=== PATIENT | female | born 1985 | race Caucasian/White ===

== ENCOUNTER → 2018-01-15 | Outpatient (CLI) | payer OTHER ==
[2018-01-15 08:16] LABS: BASOPHILS # (AUTO) 0.03 x10^3/uL (0-0.1); BASOPHILS % (AUTO) 0 % (0-1); EOSINOPHILS # (AUTO) 0.05 x10^3/uL (0-0.4); EOSINOPHILS % (AUTO) 1 % (1-7); LYMPHOCYTES # (AUTO) 2.08 x10^3/uL (1-3.4); LYMPHOCYTES % (AUTO) 26 % (22-44); MD NO; MEAN CORPUSCULAR HGB CONC 33.4 g/dL (32.4-35.8); MEAN CORPUSCULAR VOLUME 95.8 fL (80-100); MEAN PLATELET VOLUME 9.7 fL (7.4-10.4); MONOCYTES # (AUTO) 0.55 x10^3/uL (0.2-0.8); MONOCYTES % (AUTO) 7 % (2-9); NEUTROPHILS # (AUTO) 5.19 x10^3/uL (1.8-6.8); NEUTROPHILS % (AUTO) 66 % (42-75); PLATELET COUNT 217 x10^3/uL (130-400); RED BLOOD COUNT 4.56 x10^6/uL (3.82-5.3); RED CELL DISTRIBUTION WIDTH 12.7 % (9.6-15.2)
[2018-01-15 08:26] LABS: ALANINE AMINOTRANSFERASE 44 U/L (12-78); ALBUMIN 3.7 g/dL (3.4-5.0); ANION GAP 8 mmol/L (5-15); CALCIUM 8.9 mg/dL (8.5-10.1); CHLORIDE 108 mmol/L (98-107); CREATININE 0.87 mg/dL (0.55-1.02)
[2018-01-15 08:36] LABS: ALKALINE PHOSPHATASE 97 U/L (45-117); BILIRUBIN,TOTAL 0.9 mg/dL (0.2-1.0); THYROID STIMULATING HORMONE 0.864 mIU/L (0.358-3.740); TOTAL PROTEIN 7.8 g/dL (6.4-8.2)
== END | disposition home or self-care (01) ==
LOC: LAB 07:46
PROVIDERS: ATTEND Family Medicine
DX: N92.1 Excessive and frequent menstruation with irregular cycle (principal); R53.83 Other fatigue
CPT/HCPCS: 36415; 80053; 82306; 84443; 85025